=== PATIENT | female | born 1965 | race Caucasian/White ===

== ENCOUNTER → 2016-09-27 11:28 | Outpatient (CLI) | payer BC ==
[2016-09-28 08:21] LABS: IMMUNOGLOBULIN A 189 mg/dL (87-352); IMMUNOGLOBULIN G 766 mg/dL (700-1600)
[2016-09-28 10:19] LABS: IMMUNOGLOBULIN E 14 IU/mL (0-100)
== END | disposition home or self-care (01) ==
LOC: D.RT 11:28
PROVIDERS: Internal Medicine Pulmonary Disease
DX: J45.991 Cough variant asthma (principal); Z87.09 Personal history of other diseases of the respiratory system

== ENCOUNTER → 2016-10-18 14:01 | Outpatient (CLI) | payer BC | END | disposition home or self-care (01) | LOC: D.MRI 14:01 | DX: M50.30 Other cervical disc degeneration, unspecified cervical region (principal) ==

== ENCOUNTER → 2016-11-05 17:02 | Outpatient (CLI) | payer BC | END | disposition home or self-care (01) | LOC: D.MAMMO 14:30 | DX: Z12.31 Encounter for screening mammogram for malignant neoplasm of breast (principal) ==

== ENCOUNTER → 2018-07-06 07:18 | Outpatient (CLI) | payer SELFPAY | END | disposition home or self-care (01) | LOC: D.MRI 07:00 | DX: M54.12 Radiculopathy, cervical region (principal) ==